=== PATIENT | female | born 1940 | race Caucasian/White ===

== ENCOUNTER 2018-04-05 00:43 | Outpatient (CLI) | payer MEDICARE, SELFPAY ==
--- NOTE | 2018-04-05 08:30 | DI.MAMMO_ITS ---
SYMPTOM/DIAGNOSIS: SCREENING, FAMILY H/O BREAST CA, Z80.3, Z12.31 MAMMOGRAMS: Mammograms were interpreted according to the usual protocol including computer analysis with CAD system, tomosynthesis and C view imaging. Comparison is made with exams from 2017. The breasts are composed of heterogeneously dense fibroglandular tissue, breast density, category C. No suspicious masses or suspicious microcalcifications are seen. There has been no significant change. IMPRESSION: Category 1C, negative mammogram. Yearly screening mammography is recommended. SA ASSESSMENT OF FINDINGS: Negative. Category 1. Patient will receive a letter notifying them of these results. Bi-RADS category C. The breasts are heterogeneously dense, which may obscure small masses.
== END 2018-04-05 01:03 ==
PROVIDERS: PCP Nurse Practitioner Family; Visit Provider Nurse Practitioner Family
DX: Z12.31 Encounter for screening mammogram for malignant neoplasm of breast (principal); Z80.3 Family history of malignant neoplasm of breast
CPT/HCPCS: 77063; 77067

== ENCOUNTER 2018-10-24 09:34 | Emergency (ER) | payer MEDICARE, OTHER, SELFPAY ==
[2018-10-24] VITALS (46 sets, daily range): BP systolic 123–184; BP diastolic 33–93; PULSE 29–127; RESP 9–21; TEMP 36.6; O2SAT 93–100
--- NOTE | 2018-10-24 09:45 | DI.RAD_ITS ---
SYMPTOMS/DIAGNOSIS: SHORTNESS OF BREATH, CHEST PAIN PORTABLE CHEST: Comparison is made with January,. The heart size is normal. The lungs show emphysematous and fibrotic changes. Leads overlie the chest. No superimposed infiltrate, effusion or pulmonary edema is seen. There is no evidence of pneumothorax. IMPRESSION: Fibrotic changes. No acute abnormality.
[2018-10-24 09:58] LABS: Abs Immature Grans 0.01 k/cumm (0.0-0.09); Absolute Basophil Count 0.04 k/cumm (0.0-0.2); Absolute Eosinophil Count 0.12 k/cumm (0.0-0.7); Absolute Monocyte Count 0.47 k/cumm (0.11-0.7); Absolute Neutrophil Count 4.69 k/cumm (1.2-6.7); Basophils % 0.6; Eosinophils % 1.7; HCT 38.3 % (36.0-46.0); HGB 12.8 g/dL (12.0-15.5); Immature Grans % 0.1; Lymphocytes % 25.2; Mean Corp. HGB Concentration 33.4 g/dL (32.0-36.0); Mean Corpuscular Hemoglobin 30.1 pg (27.0-33.0); Mean Corpuscular Volume 90.1 fL (80-95); Mean Platelet Volume 9.3 fL (8.0-11.0); Monocytes % 6.6; Neutrophils % 65.8; Platelet Count 283 x1000/uL (130-400); RBC 4.25 m/cumm (4.00-5.20); RBC Distribution Width 13.1 % (11.7-14.6); White Blood Cell Count 7.13 k/cumm (4.4-10.8)
[2018-10-24 10:22] LABS: ALT 57 U/L (12-78); Albumin 3.4 g/dL (3.4-5.0); Alkaline Phosphatase 100 U/L (46-116); Anion Gap 9.4 mmol/L (3-11); BUN 23 mg/dL (7-18); Bilirubin, Total 0.5 mg/dL (0.2-1.0); CO2 23.6 mmol/L (21.0-32.0); CREATININE 1.12 mg/dL (0.55-1.02); Chloride 104 mmol/L (98-107); Estimated GFR 46.81 (mL/min/1.73m2); Glucose 104 mg/dL (70-100); Magnesium 2.4 mg/dL (1.8-2.4); NT-proBNP 3037 pg/mL; Potassium 4.4 mmol/L (3.5-5.1); Sodium 137 mmol/L (136-145); Total Protein 6.7 g/dL (6.4-8.2)
--- NOTE | 2018-10-24 10:24 | NUR.NOTE ---
patient up to commode with CAM Das voided and had a small bowel movement, patient sob with getting to bed side commode Nursing Note:
[2018-10-24 10:30] LABS: AST 47 U/L (15-37)
[2018-10-24 10:32] LABS: Troponin I < 0.02 ng/mL (0.00-0.06)
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
[2018-10-24 14:22] LABS: Troponin I 0.02 ng/mL (0.00-0.06)
== END 2018-10-24 14:20 ==
PROVIDERS: Emergency Provider Emergency Medicine; PCP Family Medicine
DX: I44.1 Atrioventricular block, second degree (principal); I50.9 Heart failure, unspecified; R00.1 Bradycardia, unspecified; R94.31 Abnormal electrocardiogram [ECG] [EKG]; R07.9 Chest pain, unspecified; I11.0 Hypertensive heart disease with heart failure
CPT/HCPCS: 36415; 80053; 93005; 99285; 71045; 83735; 83880; 84484; 85025; 93010

== ENCOUNTER 2018-11-02 15:00 | Outpatient (REF) | payer MEDICARE, OTHER, SELFPAY ==
[2018-11-02 22:00] LABS: Anion Gap 9.3 mmol/L (3-11); BUN 21 mg/dL (7-18); CO2 28.7 mmol/L (21.0-32.0); CREATININE 0.86 mg/dL (0.55-1.02); Calcium 9.4 mg/dL (8.5-10.1); Chloride 100 mmol/L (98-107); Glucose 92 mg/dL (70-100); Potassium 4.2 mmol/L (3.5-5.1); Sodium 138 mmol/L (136-145)
== END 2018-11-02 15:20 ==
LOC: NCHCN 15:00
PROVIDERS: PCP Family Medicine; Visit Provider Family Medicine
DX: I44.1 Atrioventricular block, second degree (principal)
CPT/HCPCS: 80048

== ENCOUNTER 2019-03-31 00:24 | Outpatient (CLI) | payer MEDICARE, OTHER, SELFPAY ==
[2019-03-31 10:37] LABS: Calculated LDL 104 mg/dL; Cholesterol 229 mg/dL (50-200); HDL Cholesterol 103 mg/dL (40-60); Triglyceride 113 mg/dL (30-150)
== END 2019-03-31 00:44 ==
PROVIDERS: PCP Family Medicine; Visit Provider Internal Medicine Cardiovascular Disease
DX: I70.90 Unspecified atherosclerosis (principal)
CPT/HCPCS: 36415; 80061

== ENCOUNTER 2019-11-24 04:13 | Outpatient (CLI) | payer MEDICARE, OTHER, SELFPAY ==
[2019-11-24 13:36] LABS: Anion Gap 8.5 mmol/L (3-11); BUN 20 mg/dL (7-18); CO2 29.5 mmol/L (21.0-32.0); Calcium 9.3 mg/dL (8.5-10.1); Chloride 100 mmol/L (98-107); Estimated GFR 53.21 (mL/min/1.73m2); Glucose 89 mg/dL (74-106); Potassium 3.5 mmol/L (3.5-5.1); Sodium 138 mmol/L (136-145); TSH (W/Ref FT4) 1.07 uIU/mL (0.36-3.74); Vitamin B12 475 pg/mL (193-986)
== END 2019-11-24 04:33 ==
PROVIDERS: PCP Family Medicine; Visit Provider Family Medicine
DX: E03.9 Hypothyroidism, unspecified (principal); E53.8 Deficiency of other specified B group vitamins; E87.1 Hypo-osmolality and hyponatremia
CPT/HCPCS: 36415; 80048; 82607; 84443

== ENCOUNTER 2020-11-22 11:08 | Outpatient (CLI) | payer MEDICARE, OTHER, SELFPAY ==
[2020-11-22 13:11] LABS: AST 21 U/L (15-37); TSH (W/Ref FT4) 0.68 uIU/mL (0.36-3.74)
== END 2020-11-22 11:09 | disposition home or self-care (01) ==
LOC: LOS 11:08
PROVIDERS: PCP Family Medicine; Referring Provider Family Medicine; Visit Provider Family Medicine
DX: E03.9 Hypothyroidism, unspecified (principal); K76.0 Fatty (change of) liver, not elsewhere classified
CPT/HCPCS: 36415; 84443; 84450